=== PATIENT | male | born 1970 | race Caucasian/White ===

== ENCOUNTER 2021-09-27 09:57 | Inpatient (IN) | payer SELFPAY ==
[2021-09-27] MEDS ORDERED: ACETAMINOPHEN 1000 MG/100 ML VIAL IVPB ONE (10:33)
[2021-09-27] MEDS ORDERED: ACETAMINOPHEN INJECTION 100 ML IVPB ONE ×2 (10:40→19:34)
[2021-09-27 11:17] LABS: BASO % 0.3 % (0-2.0); EOS % 0.1 % (0-4.5); HEMATOCRIT 41.1 % (35.4-49); HEMOGLOBIN 14.1 GM/dL (11.7-16.9); LYMPH % 10.8 % (8-40); MCH 31.1 pg (25.7-33.7); MCHC 34.3 g/dl (32.0-35.9); MEAN CELL VOLUME 90.6 fl (80-96); MEAN PLT VOLUME 8.7 fl (7.5-11.1); MONO % 8.3 % (3.8-10.2); NEUT % 80.5 % (42.8-82.8); PLATELET COUNT 197 10^3/uL (134-434); RBC 4.53 M/mm3 (4.00-5.60); WHITE BLOOD COUNT 17.5 K/mm3 (4.0-10.0)
[2021-09-27 11:41] LABS: CHLORIDE 100 mmol/L (98-107); SODIUM 136 mmol/L (136-145)
[2021-09-27 11:44] LABS: ALBUMIN 3.3 g/dl (3.4-5.0); BLOOD UREA NITROGEN 7.3 mg/dL (7-18); LIPASE 47 U/L (73-393)
[2021-09-27 11:45] LABS: ANION GAP 5 MMOL/L (8-16); CALCIUM 8.8 mg/dL (8.5-10.1); CO2 31 mmol/L (21-32); GLUCOSE,RANDOM 164 mg/dL (74-106); MAGNESIUM 2.2 mg/dL (1.8-2.4)
[2021-09-27 11:47] LABS: CREATININE 0.8 mg/dL (0.55-1.3); SGOT/AST 22 U/L (15-37)
[2021-09-27 11:48] LABS: PHOSPHOROUS 1.6 mg/dL (2.5-4.9); SGPT/ALT 28 U/L (13-61)
[2021-09-27 11:49] LABS: ALK PHOS 96 U/L (45-117); BILIRUBIN,TOTAL 0.7 mg/dL (0.2-1); TOT PROT 7.2 g/dl (6.4-8.2)
[2021-09-27] MEDS ORDERED: SODIUM CHLORIDE 0.9% 500 ML INFUS.BAG IV ONE (12:01)
[2021-09-27 12:36] LABS: EPI CELLS 4 /uL (0-25.1); HYALINE CASTS 0 /uL (0-3.1); URINE APPEARANCE CLEAR; URINE BACTERIA 3 /uL (0-1359); URINE BILIRUBIN NEGATIVE (NEGATIVE); URINE COLOR DK YELLOW; URINE GLUCOSE (UA) NEGATIVE (NEGATIVE); URINE KETONE NEGATIVE (NEGATIVE); URINE LEUK ESTERASE NEGATIVE (NEGATIVE); URINE NITRITE NEGATIVE (NEGATIVE); URINE PROTEIN 1+ (NEGATIVE); URINE RBC 35 /uL (0-23.9); URINE WBC 2 /uL (0-25.8)
[2021-09-27] MEDS ORDERED: CEFTRIAXONE 1 GM in DEXTROSE 5%-WATER - 100 ML IVPB ONE (14:13)
[2021-09-27] MEDS ORDERED: CEFTRIAXONE 1 GM/50 ML BAG ONE (14:34)
[2021-09-27] MEDS ORDERED: ACETAMINOPHEN 1000 MG/100 ML VIAL IVPB PRN (15:14)
[2021-09-27] MEDS: LACTATED RINGERS SOLUTION 1,000 ML IV SCH (16:23)
[2021-09-27] MEDS ORDERED: ASPIRIN 81 MG CHEWABLE TABLETS ONE (17:02)
[2021-09-27] MEDS ORDERED: ACETAMINOPHEN 325 MG TABLET (FP) ONE (17:02)
[2021-09-28 00:26] VITALS: BMI 30.9
[2021-09-28] MEDS: LACTATED RINGERS SOLUTION 1,000 ML IV SCH ×2 (00:53→13:36)
[2021-09-28] MEDS ORDERED: NAPH,MB-DB/K PH,MBDB POWDER PACKET PO ONE (09:15)
[2021-09-28] MEDS: PANTOPRAZOLE SODIUM 40 MG VIAL IVPUSH SCH (09:57)
[2021-09-28] MEDS ORDERED: DEXTROSE 5%-WATER - 50 ML IVPB ONE (10:01)
[2021-09-28] MEDS ORDERED: cefTRIAXone SODIUM 1 GM VIAL ONE (10:01)
[2021-09-28 10:03] LABS: BASO % 0.3 % (0-2.0); EOS % 0.5 % (0-4.5); HEMATOCRIT 37.5 % (35.4-49); HEMOGLOBIN 12.7 GM/dL (11.7-16.9); LYMPH % 16.5 % (8-40); MCH 30.8 pg (25.7-33.7); MCHC 33.9 g/dl (32.0-35.9); MEAN PLT VOLUME 9.5 fl (7.5-11.1); MONO % 8.5 % (3.8-10.2); NEUT % 74.2 % (42.8-82.8); PLATELET COUNT 195 10^3/uL (134-434); RBC 4.12 M/mm3 (4.00-5.60); RDW 12.6 % (11.9-15.9); WHITE BLOOD COUNT 16.1 K/mm3 (4.0-10.0)
[2021-09-28] MEDS: ENOXAPARIN NA (PORCINE) 40 MG/0.4 ML DISP.SYRIN SQ SCH (10:19)
[2021-09-28] MEDS: CEFTRIAXONE 1 GM in DEXTROSE 5%-WATER - 50 ML IVPB SCH (10:19)
[2021-09-28 10:24] LABS: ALBUMIN 2.8 g/dl (3.4-5.0); BLOOD UREA NITROGEN 8.1 mg/dL (7-18); CALCIUM 8.7 mg/dL (8.5-10.1)
[2021-09-28 10:27] LABS: CREATININE 0.8 mg/dL (0.55-1.3)
[2021-09-28 10:28] LABS: PHOSPHOROUS 2.2 mg/dL (2.5-4.9)
[2021-09-28 10:29] LABS: BILIRUBIN,TOTAL 0.8 mg/dL (0.2-1); TOT PROT 6.6 g/dl (6.4-8.2)
[2021-09-28] MEDS ORDERED: ACETAMINOPHEN 1000 MG/100 ML VIAL IVPB ONE (21:52)
[2021-09-29] MEDS ORDERED: cefTRIAXone SODIUM 1 GM VIAL ONE (10:44)
[2021-09-29] MEDS ORDERED: DEXTROSE 5%-WATER - 50 ML IVPB ONE (10:44)
[2021-09-29] MEDS: CEFTRIAXONE 1 GM in DEXTROSE 5%-WATER - 50 ML IVPB SCH (10:49)
[2021-09-29] MEDS: ENOXAPARIN NA (PORCINE) 40 MG/0.4 ML DISP.SYRIN SQ SCH (10:49)
[2021-09-29] MEDS: PANTOPRAZOLE SODIUM 40 MG VIAL IVPUSH SCH (10:49)
[2021-09-29] MEDS ORDERED: LACTATED RINGERS SOLUTION 1,000 ML IV SCH (14:14)
[2021-09-29] MEDS: NAPH,MB-DB/K PH,MBDB POWDER PACKET PO SCH (17:10)
[2021-09-30 09:22] LABS: BASO % 1.3 % (0-2.0); EOS % 2.6 % (0-4.5); HEMATOCRIT 40.4 % (35.4-49); HEMOGLOBIN 13.5 GM/dL (11.7-16.9); LYMPH % 30.1 % (8-40); MCH 30.4 pg (25.7-33.7); MCHC 33.3 g/dl (32.0-35.9); MEAN CELL VOLUME 91.3 fl (80-96); MEAN PLT VOLUME 9.3 fl (7.5-11.1); MONO % 9.9 % (3.8-10.2); NEUT % 56.1 % (42.8-82.8); PLATELET COUNT 221 10^3/uL (134-434); RBC 4.43 M/mm3 (4.00-5.60); RDW 12.7 % (11.9-15.9); WHITE BLOOD COUNT 7.8 K/mm3 (4.0-10.0)
[2021-09-30 09:36] LABS: BLOOD UREA NITROGEN 9.2 mg/dL (7-18); CALCIUM 8.7 mg/dL (8.5-10.1)
[2021-09-30 09:39] LABS: CREATININE 0.6 mg/dL (0.55-1.3)
[2021-09-30] MEDS ORDERED: cefTRIAXone SODIUM 1 GM VIAL ONE (11:03)
[2021-09-30] MEDS ORDERED: DEXTROSE 5%-WATER - 50 ML IVPB ONE (11:03)
[2021-09-30] MEDS: ENOXAPARIN NA (PORCINE) 40 MG/0.4 ML DISP.SYRIN SQ SCH (11:05)
[2021-09-30] MEDS: PANTOPRAZOLE SODIUM 40 MG VIAL IVPUSH SCH (11:05)
[2021-09-30] MEDS: CEFTRIAXONE 1 GM in DEXTROSE 5%-WATER - 50 ML IVPB SCH (11:05)
[2021-09-30] MEDS: NAPH,MB-DB/K PH,MBDB POWDER PACKET PO SCH (11:06)
[2021-10-01] MEDS ORDERED: DEXTROSE 5%-WATER - 50 ML IVPB ONE (09:17)
[2021-10-01] MEDS ORDERED: cefTRIAXone SODIUM 1 GM VIAL ONE (09:17)
[2021-10-01] MEDS: NAPH,MB-DB/K PH,MBDB POWDER PACKET PO SCH (09:29)
[2021-10-01] MEDS: CEFTRIAXONE 1 GM in DEXTROSE 5%-WATER - 50 ML IVPB SCH (09:30)
[2021-10-01] MEDS: ENOXAPARIN NA (PORCINE) 40 MG/0.4 ML DISP.SYRIN SQ SCH (09:30)
[2021-10-01 09:31] LABS: BASO % 0.9 % (0-2.0); EOS % 2.1 % (0-4.5); HEMATOCRIT 42.3 % (35.4-49); HEMOGLOBIN 14.5 GM/dL (11.7-16.9); LYMPH % 30.3 % (8-40); MCHC 34.3 g/dl (32.0-35.9); MEAN CELL VOLUME 90.6 fl (80-96); MEAN PLT VOLUME 9.6 fl (7.5-11.1); MONO % 9.5 % (3.8-10.2); NEUT % 57.2 % (42.8-82.8); PLATELET COUNT 231 10^3/uL (134-434); RBC 4.67 M/mm3 (4.00-5.60); RDW 12.7 % (11.9-15.9); WHITE BLOOD COUNT 9.2 K/mm3 (4.0-10.0)
[2021-10-01] MEDS: PANTOPRAZOLE SODIUM 40 MG VIAL IVPUSH SCH (09:51)
[2021-10-01 13:17] VITALS: BP 138/90; PULSE 74; TEMP 97.8
[2021-10-01 13:26] LABS: BLOOD UREA NITROGEN 8.5 mg/dL (7-18); CREATININE 0.7 mg/dL (0.55-1.3)
[2021-10-02] MEDS ORDERED: CEFTRIAXONE 2 GM in DEXTROSE 5%-WATER 2 GM/100 ML BAG IVPB SCH (10:00)
== END 2021-10-01 20:07 | disposition home or self-care (01) | DRG 244 ==
LOC: JER 09:57 → JERBED 14:14 → J6S 21:39
PROVIDERS: ADMIT Internal Medicine; ATTEND Internal Medicine
DX: K57.20 Diverticulitis of large intestine with perforation and abscess without bleeding (principal); E83.39 Other disorders of phosphorus metabolism; R10.32 Left lower quadrant pain; K59.00 Constipation, unspecified; R19.7 Diarrhea, unspecified; R10.84 Generalized abdominal pain; R50.9 Fever, unspecified; R80.9 Proteinuria, unspecified; N28.1 Cyst of kidney, acquired; F12.90 Cannabis use, unspecified, uncomplicated; R25.2 Cramp and spasm; D72.829 Elevated white blood cell count, unspecified; R11.2 Nausea with vomiting, unspecified
CPT/HCPCS: 36415; 74177-TC; 80048; 80053; 81003; 82550; 82553; 83605; 83690; 83735; 84100; 85025; 86140; 87040; 87086; 93005; 93010; 99285-25; C9803; J0131; Q9967; U0003; U0005

== ENCOUNTER 2023-05-12 18:39 | Observation (INO) | payer OTHER ==
[2023-05-12 19:05] VITALS: BMI 31.1
[2023-05-12] MEDS ORDERED: ACETAMINOPHEN 1000 MG/100 ML BAG IVPB ONE (20:07)
[2023-05-12] MEDS ORDERED: LACTATED RINGERS SOLUTION 1000 ML INFUS.BAG IV ONE ×2 (20:07→21:46)
[2023-05-12] MEDS ORDERED: ACETAMINOPHEN INJECTION 100 ML IVPB ONE (20:25)
[2023-05-12] MEDS ORDERED: ONDANSETRON 4 MG/2 ML VIAL IVPUSH ONE (20:38)
[2023-05-12] MEDS ORDERED: ONDANSETRON 4 MG/2 ML VIAL ONE (20:42)
[2023-05-12 20:47] LABS: BASO % 0.1 % (0-2.0); EOS % 0.5 % (0-4.5); HEMOGLOBIN 17.5 GM/dL (11.7-16.9); LYMPH % 4.1 % (8-40); MCH 29.5 pg (25.7-33.7); MCHC 32.3 g/dl (32.0-35.9); MEAN CELL VOLUME 91.2 fl (80-96); MEAN PLT VOLUME 9.1 fl (7.5-11.1); NEUT % 89.3 % (42.8-82.8); PLATELET COUNT 251 10^3/uL (134-434); RBC 5.92 M/mm3 (4.00-5.60); RDW 13.1 % (11.9-15.9); WHITE BLOOD COUNT 13.3 K/mm3 (4.0-10.0)
[2023-05-12 21:07] LABS: POTASSIUM 4.6 mmol/L (3.5-5.1)
[2023-05-12 21:09] LABS: CALCIUM 10.6 mg/dL (8.5-10.1)
[2023-05-12 21:10] LABS: ALBUMIN 4.4 g/dl (3.4-5.0); BLOOD UREA NITROGEN 16.3 mg/dL (7-18)
[2023-05-12 21:12] LABS: CREATININE 1.3 mg/dL (0.55-1.3)
[2023-05-12 21:14] LABS: BILIRUBIN,TOTAL 0.6 mg/dL (0.2-1); TOT PROT 8.4 g/dl (6.4-8.2)
[2023-05-12 21:18] LABS: LACTIC ACID 3.1 mmol/L (0.4-2.0)
[2023-05-12 21:43] LABS: MAGNESIUM 1.6 mg/dL (1.8-2.4)
[2023-05-12] MEDS ORDERED: PIPERACILLIN/TAZOB 4.5 GM 4.5 GM in DEXTROSE 5%-WATER 100 ML IVPB ONE (22:04)
[2023-05-12] MEDS ORDERED: PIPERACILLIN/TAZOB 4.5 GM 4.5 GM/100 ML BAG IVPB ONE (22:45)
[2023-05-12] MEDS ORDERED: MAGNESIUM SULFATE IN WATER 2 GM/50 ML IVPB IVPB ONE (22:46)
[2023-05-13] MEDS ORDERED: KETOROLAC TROMETHAMINE 15 MG/ML VIAL IVPUSH ONE (00:27)
[2023-05-13] MEDS ORDERED: KETOROLAC TROMETHAMINE 15 MG/ML VIAL ONE (00:29)
[2023-05-13 01:33] LABS: URINE APPEARANCE CLEAR; URINE BILIRUBIN NEGATIVE (NEGATIVE); URINE COLOR YELLOW; URINE GLUCOSE (UA) NEGATIVE (NEGATIVE); URINE KETONE NEGATIVE (NEGATIVE); URINE LEUK ESTERASE NEGATIVE (NEGATIVE); URINE NITRITE NEGATIVE (NEGATIVE); URINE PROTEIN TRACE (NEGATIVE); URINE UROBILINOGEN 0.2 mg/dL (0.2-1.0)
[2023-05-13 01:58] LABS: LACTIC ACID 2.8 mmol/L (0.4-2.0)
[2023-05-13] MEDS ORDERED: LACTATED RINGERS SOLUTION 1000 ML INFUS.BAG IV ONE (02:37)
[2023-05-13] MEDS ORDERED: PIPERACILLIN/TAZOB 4.5 GM 4.5 GM in DEXTROSE 5%-WATER 100 ML IVPB ONE (04:28)
[2023-05-13] MEDS ORDERED: LACTATED RINGERS SOLUTION 1,000 ML IV SCH (04:30)
[2023-05-13] MEDS ORDERED: PIPERACILLIN/TAZOB 4.5 GM 4.5 GM/100 ML BAG IVPB ONE (04:41)
[2023-05-13 06:28] LABS: HEMATOCRIT 42.5 % (35.4-49); HEMOGLOBIN 13.9 GM/dL (11.7-16.9); MCH 29.9 pg (25.7-33.7); MCHC 32.6 g/dl (32.0-35.9); MEAN CELL VOLUME 91.5 fl (80-96); MEAN PLT VOLUME 8.9 fl (7.5-11.1); PLATELET COUNT 229 10^3/uL (134-434); RBC 4.64 M/mm3 (4.00-5.60); RDW 13.1 % (11.9-15.9); WHITE BLOOD COUNT 8.6 K/mm3 (4.0-10.0)
[2023-05-13 06:51] LABS: POTASSIUM 4.6 mmol/L (3.5-5.1)
[2023-05-13 06:54] LABS: BLOOD UREA NITROGEN 18.7 mg/dL (7-18)
[2023-05-13 06:58] LABS: BILIRUBIN,TOTAL 0.7 mg/dL (0.2-1)
[2023-05-13 07:37] LABS: CALCIUM 8.7 mg/dL (8.5-10.1); TOT PROT 5.8 g/dl (6.4-8.2)
[2023-05-13] MEDS ORDERED: ONDANSETRON 4 MG/2 ML VIAL IVPUSH PRN (11:21)
[2023-05-13] MEDS ORDERED: LACTATED RINGERS SOLUTION 1,000 ML/1,000 ML INFUS.BAG IV SCH (11:30)
[2023-05-13] MEDS: ENOXAPARIN NA (PORCINE) 40 MG/0.4 ML DISP.SYRIN SQ SCH (18:25)
[2023-05-14 10:25] LABS: HEMOGLOBIN 14.2 GM/dL (11.7-16.9); MCH 29.5 pg (25.7-33.7); MCHC 32.2 g/dl (32.0-35.9); MEAN CELL VOLUME 91.5 fl (80-96); MEAN PLT VOLUME 9.1 fl (7.5-11.1); PLATELET COUNT 215 10^3/uL (134-434); RBC 4.81 M/mm3 (4.00-5.60); RDW 12.8 % (11.9-15.9); WHITE BLOOD COUNT 7.9 K/mm3 (4.0-10.0)
[2023-05-14] MEDS: ENOXAPARIN NA (PORCINE) 40 MG/0.4 ML DISP.SYRIN SQ SCH (10:49)
[2023-05-14 11:06] LABS: POTASSIUM 4.1 mmol/L (3.5-5.1)
[2023-05-14 11:11] LABS: ALBUMIN 3.6 g/dl (3.4-5.0); BLOOD UREA NITROGEN 11.9 mg/dL (7-18); CALCIUM 9.3 mg/dL (8.5-10.1)
[2023-05-14 11:12] LABS: MAGNESIUM 2.2 mg/dL (1.8-2.4)
[2023-05-14 11:14] LABS: CREATININE 0.7 mg/dL (0.55-1.3); PHOSPHOROUS 3.3 mg/dL (2.5-4.9)
[2023-05-14 11:15] LABS: BILIRUBIN,TOTAL 0.3 mg/dL (0.2-1); TOT PROT 6.6 g/dl (6.4-8.2)
[2023-05-14 15:13] VITALS: BP 149/82; PULSE 80; RESP 20; TEMP 97.8
== END 2023-05-14 20:19 | disposition home or self-care (01) ==
LOC: JER 18:39 → INTOOBSV 05-13 02:37 → UNDOADMOB 05-13 02:37 → JERBED 05-13 02:37 → UNDOADMOB 05-13 11:59 → JERBED 05-13 12:20 → J8W 05-13 16:23
PROVIDERS: ADMIT Internal Medicine; ATTEND Nurse Practitioner Family
PROC: 3E023GC Introduction of Other Therapeutic Substance into Muscle, Percutaneous Approach (ICD-10-PCS; principal; 2023-05-13)
PROC: 3E033NZ Introduction of Analgesics, Hypnotics, Sedatives into Peripheral Vein, Percutaneous Approach (ICD-10-PCS; 2023-05-13)
PROC: 3E0333Z Introduction of Anti-inflammatory into Peripheral Vein, Percutaneous Approach (ICD-10-PCS; 2023-05-13)
PROC: 3E0337Z Introduction of Electrolytic and Water Balance Substance into Peripheral Vein, Percutaneous Approach (ICD-10-PCS; 2023-05-13)
PROC: 3E03329 Introduction of Other Anti-infective into Peripheral Vein, Percutaneous Approach (ICD-10-PCS; 2023-05-13)
DX: K58.9 Irritable bowel syndrome, unspecified (principal); K57.92 Diverticulitis of intestine, part unspecified, without perforation or abscess without bleeding; H35.52 Pigmentary retinal dystrophy; F17.210 Nicotine dependence, cigarettes, uncomplicated
CPT/HCPCS: 0241U-QW; 36415; 71045-TC-FY; 74177-TC; 80053; 81003; 83605; 83690; 83735; 84100; 85025; 85027; 87040; 87086; 93005; 93010; 96361; 96365; 96366; 96367; 96372; 96375; 99285-25; G0378; Q9967